=== PATIENT | female | born 1970 | race Caucasian/White ===

== ENCOUNTER 2016-12-22 22:03 | Emergency (ER) | payer SELFPAY ==
[2016-12-22 22:18] VITALS: RESP 22; TEMP 97.5
--- NOTE | 2016-12-22 23:08 | PDOC ---
Abdomen/Flank HPI - General Chief Complaint: Abdomen Pain Stated Complaint: Abdominal pain Date Seen by Provider: 12/22/16 Time Seen by Provider: 22:30 - History of Present Illness Initial Comments: Patient is a very nice 46-year-old woman who presents to the emergency department for evaluation of abdominal and pelvic pain. She states that [place] [facility] and [place] blood work and some morphine and Toradol for pain control prior to coming here. She states that she's had decades of abdominal and pelvic symptoms especially around the time of her cycle. She states that this has increased in severity over the last few years in this years been worse than the previous. She states that she is just finishing up. Currently and that today she started to have some sharp crampy low abdominal pain that at times double her over. This prompted her to go get medical attention. She was seen in the emergency department at the outside facility and had CBC and CMP performed. This was all completely normal. She continued to have some symptoms therefore was referred to see us for possible need of more definitive imaging. She is currently lying on the gurney with no substantial distress pain under control. She denies any nausea or vomiting. She has had a couple of abdominal surgeries in the past. She still has her uterus and ovaries and her appendix. - Patient Home Medications Home Medications: Home Medications Hydrocodone/Acetaminophen [Hydrocodon-Acetaminophen 5-325] 1 each PO Q6HR PRN Methocarbamol [Robaxin] 1,000 mg PO QID 03/17/15 Tramadol HCl [Ultram] 50 mg PO Q6H PRN 03/17/15 Venlafaxine HCl [Effexor Xr] 150 mg PO DAILY 03/17/15 methylPREDNISolone Dose Pack [Medrol Dose Pack] 4 mg PO .SEE PACKAGE 03/17/15 - Patient Allergies Allergies/Adverse Reactions: Allergies Allergy/AdvReac Type Severity Reaction Status Date / Time gabapentin [From Neurontin] Allergy DYSPHORIA Verified 12/22/16 22:10 pregabalin [From Lyrica] Allergy RASH Verified 12/22/16 22:10 Past Medical History - giovanna HEENT History: Denies History Cardiovascular History: Denies History Respiratory History: Asthma Gastrointestinal History: Denies History Genitourinary History: Kidney Stones Endocrine History: Denies History Musculoskeletal History: Fibromyalgia, Back Pain, Back Injury Neurological History: Denies History Blood Disorders: Denies History Psychiatric History: Depression, Anixety Disorders History of Sexually Transmitted Diseases: No Female Reproductive History: Endometriosis, Other (please comment) Additional Female Reproductive History: NO DIAGNOSIS YET, BUT BEEN TREATED BY PCP FOR POSSIBLE HYSTERECTOMY. Obstetrical History: Denies History Cancer History: Denies History In Past Year Been Physically Harmed or Verbally Threatened: No History of MDRO: No History of Other Communicable Diseases: No Tobacco Use: Current Every Day Smoker Alcohol Use: Rarely Substance Use Type: None Previous Surgical History: Yes Type / Date of Surgery: TONSILS, CHOLECYSTECTOMY, [id number] Anesthesia Reactions: No Malignant Hyperthermia: No Significant Family History: No pertinent family hx Past Medical History Reviewed: Reviewed - No Changes ROS Constitution: REPORTS: Denies Symptoms Cardiovascular: REPORTS: Denies Cardiac Symptoms Respiratory: REPORTS: Denies Resp Symptoms Neurological: REPORTS: Denies Neuro Symptoms Musculoskeletal: REPORTS: Denies MS Symptoms Abdominal/Flank Pain PE - General Appearance General Appearance: POSITIVE: Alert, Cooperative, No Acute Distress - HEENT HEENT: POSITIVE: Head Inspection Nml, Eyes Inspection Nml - Neck Neck: POSITIVE: Normal Inspection - Respiratory Respiratory: POSITIVE: No Respiratory Distress, Breath Sounds Normal - Cardiovascular Cardiovascular: POSITIVE: Regular Rate and Rhythm, Heart Sounds Normal, Other ( Heart rate of 85 with my exam) - Abdomen Additional Abdominal Details: Somewhat generalized abdominal tenderness increased in the low abdomen across the entire low abdomen. - Neurological Neurological: POSITIVE: Affect Apporpriate, Oriented X3, manager of distribution Normal As Tested - Psychological Psychiatric: POSITIVE: Affect Appropriate, Mood Appropriate Abdomen Progress - Patient's Progress MDM / ED Course: All the patient's labs and vitals are reviewed with the patient. We did discuss that right now all of her labs are benign her pain is reasonably well controlled now that she had been treated at the outside facility and is feeling somewhat better. She also states that she has some pain medication available to her at home she normally takes for her fibromyalgia. Ultimately high have told her that with a normal white blood cell count otherwise all normal labs no evidence of substantial bleeding from her period with normal H&H that the pretest probability on a CT scan would be likely very low as well as obtaining an ultrasound may end up in require repeat ultrasound as if she is going to go see an COURT SUPERVISOR there may be some variance and what the tree pruner would like to see or if he would like to do the ultrasound himself prior to considering a surgical procedure. I think it would be reasonable to go ahead and order one of these studies however given the chronic nature of her pain the fact that the pain was worse today than normal and that she required IV pain medication to get it under control. I'm also sensitive to the fact that she does not health health insurance and did not want to do any studies that may be duplicated are replicated depending on specific needs of a specialist her surgeon. I have given the patient the options of either having CT scan of her abdomen and pelvis with IV contrast or transvaginal pelvic ultrasound or simply waiting in talking with a COURT SUPERVISOR allowing further workup to be made through specialists clinic. At this point she is choosing to wait . her primary care provider tomorrow and get set up with an COURT SUPERVISOR. I have instructed her though she starts having any increase in symptoms or anything else of concern at all to return would be glad to perform whatever study necessary. Patient Care Time - Estimated PCT Patient Care Time (In Minutes): 30 Vital Signs - Recent Vital Signs Vital Signs: Vital Signs (Last 8 hours) Temp Pulse Resp BP Pulse Ox 12/22/16 22:04 97.5 F 106 H 22 157/91 93 - VS Reviewed Vital Signs Reviewed: Yes Discharge Clinical Impression: Abdominal pain Discharge Disposition: Discharged to Home Condition: Stable Patient Instructions Given at Discharge: Pelvic Pain in Women (ED) Additional Instructions: Return with any increase in symptoms or other concerns. Follow-up with COURT SUPERVISOR or primary care provider tomorrow if possible to discuss her symptoms and to direct further care Use your home pain medication as needed to treat her symptoms Follow Up With: NONE,NONE [Primary Care Provider] -
== END 2016-12-22 23:08 | disposition home or self-care (01) ==
LOC: ER 22:03
DX: R10.84 Generalized abdominal pain (principal); Z72.0 Tobacco use
CPT/HCPCS: 99282